=== PATIENT | female | born 1955 | race African-American/Black ===

== ENCOUNTER 2024-12-17 16:30 | Emergency (ER) | payer OTHER, MEDICAID ==
[~2024-12-17] VITALS: Ht 167.6 cm; Wt 65.0 kg
[2024-12-17 16:33] VITALS: O2SAT 100
[2024-12-17] MEDS: SODIUM CHLORIDE 0.9% 1,000 ML IV ONE ×2 (17:16→18:31)
[2024-12-17 17:28] LABS: BASOPHILS % 1.4 % (0.0-2.0); EOSINOPHILS % 6.5 % (0.0-5.0); HEMATOCRIT. 40.6 % (36.0-48.0); HEMOGLOBIN. 13.5 g/dL (12.0-16.0); LYMPHOCYTES % 38.6 % (20.0-50.0); MEAN PLATELET VOLUME 10.3 fl (7.4-10.4); MONOCYTES % 8.0 % (2.0-8.0); NEUTROPHILS % 45.5 % (40.0-76.0); PLATELET 214 x1000/uL (130-400); RED BLOOD CELL COUNT 5.38 mill/uL (4.2-5.4); RED CELL DISTRIBUTION WIDTH 15.1 % (11.6-14.6)
[2024-12-17 17:39] LABS: CREATININE 0.7 mg/dL (0.6-1.0); UREA NITROGEN BLOOD 10 mg/dL (9-23)
[2024-12-17 17:40] LABS: TROPONIN I HIGH SENSITIVITY < 4 ng/L (3.0-34)
[2024-12-17 17:41] LABS: ASPARTATE AMINOTRANSFERASE 21 IU/L (<34); BILIRUBIN DIRECT < 0.1 mg/dL (<=3.0)
[2024-12-17 17:42] LABS: BILIRUBIN TOTAL 0.3 mg/dL (0.1-1.0); PROTEIN TOTAL 6.7 g/dL (6.0-8.3)
[2024-12-17 18:49] VITALS: BP 142/78; PULSE 63; RESP 16; TEMP 36.7; O2SAT 100
== END 2024-12-17 18:54 | disposition home or self-care (01) ==
LOC: ER 16:30 → CANBEDREQ 18:36 → ER 18:54
DX: R73.03 Prediabetes (principal); E86.0 Dehydration; I10 Essential (primary) hypertension; R06.02 Shortness of breath; J45.909 Unspecified asthma, uncomplicated; Z79.899 Other long term (current) drug therapy
CPT/HCPCS: 99285; 71045; 80076; 80048; 82010; 83036; 83880; 83605; 83735; 85025; 84484; 36415; 93005; J7030